=== PATIENT | male | born 2000 | race Caucasian/White ===

== ENCOUNTER → 2024-11-24 07:03 | Outpatient (REF) | payer BC, SELFPAY | LOC: RAD 07:03 | PROVIDERS: ATTENDING PHYSICIAN Physician Assistant Medical; FAMILY PHYSICIAN Family Medicine | DX: K40.90 Unilateral inguinal hernia, without obstruction or gangrene, not specified as recurrent (principal) | CPT/HCPCS: 76882 ==

== ENCOUNTER → 2024-12-02 13:23 | Outpatient (REF) | payer BC, SELFPAY | LOC: HWRAD 13:23 | PROVIDERS: ATTENDING PHYSICIAN Surgery; FAMILY PHYSICIAN Family Medicine | DX: R10.31 Right lower quadrant pain (principal) | CPT/HCPCS: 72170 ==